=== PATIENT | male | born 1945 | race African-American/Black ===

== ENCOUNTER → 2020-01-29 | Outpatient (CLI) | payer MEDICARE ==
[~2020-01-29] MED LIST: IOPAMIDOL 370 MG/ML 200 ML INFUS..BTL INJ ONE; SODIUM CHLORIDE 0.9% 250ML 250 ML ONE
[2020-01-29 09:48] LABS: BLOOD UREA NITROGEN 14 mg/dL (7-26); BUN/CREATININE RATIO 15 (6-25); CREATININE, SERUM 0.93 mg/dL (0.72-1.25); EST GLOMERULAR FILTRATION RATE > 60 ML/MIN (60-)
--- NOTE | 2020-01-29 11:33 | Diagnostic Imaging Report ---
CT of the abdomen and pelvis, without and with contrast. History: Hematuria. Comparison: None available. Technique: Multidetector CT scanning of the abdomen and pelvis was performed from the level of the lung bases to the inferior pubic rami before and after intravenous administration of contrast according to hematuria protocol. Coronal and sagittal multiplanar as well as three-dimensional reformations were obtained. RADIATION DOSE: Total DLP: 614.17 mGy*cm Dose modulation, iterative reconstruction, and/or weight based adjustment of the mA/kV was utilized to reduce the radiation dose to as low as reasonably achievable. FINDINGS: The visualized intrathoracic contents are unremarkable. The liver is normal in size and attenuation without evidence for focal abnormality. The gallbladder is unremarkable. There is no biliary ductal dilatation. The stomach, spleen, pancreas, and bilateral adrenal glands demonstrate no significant abnormalities. The kidneys are normal in size and location and concentrate/excrete contrast material symmetrically. There is no evidence for solid enhancing mass, nephrolithiasis, or hydronephrosis. There is a 1.4 cm simple cyst identified within the mid right kidney. Additional nonenhancing subcentimeter hypodensities are identified bilaterally which likely reflect small cysts but are too small to definitively characterize. 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 There is a single left-sided collecting system and ureter. The right ureters are unremarkable without evidence for filling defect or other abnormality. There is dilatation of the distal left ureter without evidence for filling defect. The prostate is markedly enlarged and appears heterogeneous measuring up to 7.3 x 7.0 cm. The prostate impresses upon the urinary bladder. There is a curvilinear filling defect identified within the posterior aspect of the bladder dome (axial image 116, sagittal image 67). The abdominal aorta is normal course and caliber. The IVC is unremarkable. Please note evaluation the bowel is limited without the use of enteric contrast material. The visualized loops of small and large bowel demonstrate no evidence of obstruction or inflammation. Extensive diverticula are noted within the sigmoid and descending colon without evidence for acute diverticulitis. There is no ascites or intraperitoneal free air. Multiple normal-sized to mildly prominent pelvic and iliac chain lymph nodes are noted. A left iliac chain lymph node measures 8 mm in short axis (axial image 127) and a pelvic sidewall lymph node measures 8 mm in short axis (axial image 141). There is a fat-containing right inguinal hernia present. The osseous structures demonstrate degenerative changes without evidence for acute fracture or destructive process. The extraperitoneal soft tissues are unremarkable. IMPRESSION: 1. Markedly enlarged, heterogeneous appearing prostate which impresses on upon the urinary bladder. Nonspecific mildly prominent lymph nodes noted within the pelvis Recommend correlation with PSA and urological consultation if not already obtained. 2. Dilatation of the distal left ureter which may be secondary to compression of the left ureterovesicular junction by the enlarged prostate. No evidence for intrarenal hydronephrosis. 3. Curvilinear filling defect noted within the urinary bladder which may reflect blood products but is not definitively characterized on this CT examination. Further evaluation could be performed with cystoscopy if clinically indicated. 4. 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 5. Additional findings as above. Signed by: Dr. Scott Rodriguez MD on 01/29/2020 11:30 AM
== END ==
LOC: CT 08:54
PROVIDERS: ATTEND Emergency Medicine
DX: R31.9 Hematuria, unspecified (principal)
CPT/HCPCS: 36415; 74178; 82565; 84520; J7050; Q9967